=== PATIENT | female | born 2000 | race Two or more races ===

== ENCOUNTER 2025-02-01 11:37 | Emergency (ER) | payer MEDICAID, SELFPAY ==
[2025-02-01 11:39] VITALS: BMI 27.8
--- NOTE | 2025-02-01 11:57 | XR_ITS ---
Examination: Pelvic ultrasound, transabdominal, complete Technique: Transabdominal ultrasound of the pelvis performed using grayscale imaging Date and time of exam: January 24, 2025 1343 hours INDICATIONS: Onset pelvic pain beginning this morning FINDINGS: Uterus 7.9 cm endometrial stripe 0.6 cm No uterine mass or intrauterine gestation Right ovary 3.2 cm arterial flow Left ovary 3.1 cm arterial flow IMPRESSION: Negative study
[2025-02-01 11:58] VITALS: BP 134/78; PULSE 90; RESP 18; TEMP 36.9; O2SAT 98
[2025-02-01 12:31] LABS: Collection Type, Urine Clean Catch
[2025-02-01 12:54] LABS: Basophils % (Auto) 0 % (0-2.5); Eosinophils % (Auto) 1 % (0-10); Hematocrit 38.3 % (36.0-46.0); Hemoglobin 12.6 g/dL (12.0-16.0); Immature Granulocytes % (Auto) 0 % (0-0); Immature Granulocytes Auto 0.01 Thou/mm3 (0.00-0.00); Lymphocytes # (Auto) 1.4 Thou/mm3 (1.0-4.8); Lymphocytes % (Auto) 28 % (10-50); Mean Corpuscular HGB Conc 32.9 g/dl (31.0-37.0); Mean Corpuscular Hemoglobin 28.4 pg (25.0-35.0); Mean Corpuscular Volume 87 fL (80-100); Monocytes # (Auto) 0.4 Thou/mm3 (0.0-0.8); Monocytes % (Auto) 8 % (0-12); Neutrophils % (Auto) 62 % (37-80); Nucleated Red Blood Cell % 0 /100 WBC (0); Platelet Count 155 Thou/mm3 (140-440); RDW Standard Deviation 45.1 fL (36.4-46.3); Red Blood Count 4.43 Miln/mm3 (4.00-5.20); White Blood Count 4.8 Thou/mm3 (3.6-11.0)
[2025-02-01 13:07] LABS: Bilirubin,Urine Negative (Negative); Blood,Urine Negative (Negative); Clarity,Urine Clear (Clear/Hazy); Color,Urine Lt-Yellow (Lt Yel-Yel); Culture Indicated,Urine Not Indicated; Glucose, Urine Negative (Negative); Ketones,Urine Negative (Negative); Leukocyte Esterase,Urine Negative (Negative); Nitrite,Urine Negative (Negative); PH,Urine 6.5 (5.0-7.0); Protein,Urine Negative (Neg - Trace); RBC,Urine 2 /hpf (0-3); Specific Gravity,Urine 1.024 (1.001-1.035); Squamous Epithelial Cell,Urine 7 /hpf (0-5); Urobilinogen,Urine Negative mg/dL (0.0-1.0); WBC,Urine 1 /hpf (0-5)
[2025-02-01 13:14] LABS: HCG Qualitative,Urine Negative
[2025-02-01 13:18] LABS: Alanine Aminotransferase 19 U/L (10-49); Albumin, Serum 4.7 gm/dL (3.5-5.0); Albumin/Globulin Ratio 1.9 (1.2-2.2); Alkaline Phosphatase 98 U/L (46-116); Anion Gap 9 (7-16); Aspartate Amino Transferase 17 U/L (0-34); BUN/Creatinine Ratio 16 Ratio (12-20); Bilirubin,Total 0.4 mg/dL (0.3-1.2); Blood Urea Nitrogen 11 mg/dL (9-23); Calcium 9.3 mg/dL (8.3-10.6); Calcium (Corrected) 9.3 mg/dL (8.5-10.1); Carbon Dioxide 25.2 mMol/L (20.0-31.0); Chloride 109 mMol/L (98-107); Creatinine (Component) 0.7 mg/dL (0.6-1.3); Estimated Creatinine Clearance 119.6 mL/min (>60); Globulin 2.5 gm/dL (2.3-3.5); Glucose 114 mg/dL (74-106); Lipase 31 U/L (12-53); Osmolality,Calculated 285 (275-295); Potassium 3.7 mMol/L (3.4-5.1); Sodium 143 mMol/L (136-145); Total Protein 7.2 gm/dL (5.7-8.2); eGFR > 60 See Note
--- NOTE | 2025-02-01 14:11 | XR_ITS ---
Examination: CT abdomen and pelvis without contrast. Coronal 3-D reconstructions. Sagittal 2-D reconstructions. Date and time of exam:February 01, 2025 1513 hours INDICATIONS: Onset abdominal pain flank pain today COMPARISON: August 06, 2023 CTDI: vol (mGy): 8.97 DLP: (mGycm): 508 Technique: Axial images of the abdomen have been obtained, 3 mm slice thickness Intravenous contrast material has not been administered. Low dose protocols were performed. One or more of the following dose reduction techniques were used; automated exposure control, adjustment of the mA and/or KV according to patient size, use of iterative reconstruction technique. Findings: No focal liver or splenic lesions Absent gallbladder No pancreatic or adrenal mass No renal or ureteral calculi, no hydronephrosis Normal appendix No bowel obstruction 6 mm fat-containing a buckle hernia No diverticulitis Retroverted uterus No pelvic mass Urinary bladder intact The osseous structures are intact IMPRESSION: No renal or ureteral calculi, no hydronephrosis Normal appendix No bowel obstruction diverticulitis or free air
--- NOTE | 2025-02-01 15:50 | EDNOTE_ITS ---
<Statement entered by Love Gaviria MD - 02/07/25 02:10> As co-signing physician, I was present and available for consult prn. I concur with the plan and care as documented by the midlevel provider. ED Abdominal Pain RME/HPI General Chief Complaint: Abdominal Pain Stated complaint: ABDOMINAL PAIN SINCE YESTERDAY Time seen by provider: 02/01/25 11:58 Arrival date/time: 02/01/25 11:37 24-year-old female with no significant problems presents to the emergency department today for complaints of pelvic pain white vaginal discharge Limitations: no limitations Related Data Home Medications ?Medication ?Instructions ?Recorded ?Confirmed vits no.130-ferrous fum 1 tab PO QDAY 3 04/16/23 27 mg iron-folic acid 800 mcg tablet ( Vitamin) Previous Rx's ?Medication ?Instructions ?Recorded omeprazole 20 mg capsule,delayed 20 mg PO QDAY 30 days #30 caps 02/22/23 release meloxicam 7.5 mg tablet 7.5 mg PO QDAY #14 tabs 07/09 10/29 ibuprofen 800 mg tablet 800 mg PO TID PRN pain #30 t abs 08/10/23 ibuprofen 600 mg tablet 600 mg PO Q6H #30 tabs 02/01 Allergies Allergy/AdvReac Type Severity Reaction Status Date / Time No Known Allergies Allergy Verified 02/01/25 11:38 Review of Systems Review of Systems Systems Reviewed: All systems reviewed, normal except as documented Constitutional Constitutional: Reports system reviewed and no additional complaints, except as documented, Denies fever(s) and Denies headache(s) Eyes Eyes: Reports system reviewed and no additional complaints, except as documented and Denies blurry vision ENT Ears, Nose, Mouth, and Throat: Reports system reviewed and no additional complaints, except as documented, Denies headache(s), Denies nasal congestion and Denies nasal discharge Cardiovascular Cardiovascular: Reports system reviewed and no additional complaints, except as documented, Denies chest pain and Denies dyspnea Respiratory Respiratory: Reports system reviewed and no additional complaints, except as documented, Denies chest congestion, Denies cough and Denies dyspnea Gastrointestinal Gastrointestinal: Reports system reviewed and no additional complaints, except as documented and Denies abdominal pain Genitourinary Genitourinary: Reports system reviewed and no additional complaints, except as documented, Denies abnormal vaginal bleeding, Denies flank pain, Denies hematuria, Reports pelvic pain and Reports vaginal discharge Integumentary/Breasts Skin/Breast: Reports system reviewed and no additional complaints, except as documented and Denies rash Neurologic Neurologic: Reports system reviewed and no additional complaints, except as documented, Reports as per HPI and Denies headache(s) Past Medical History Past Medical History NEUROLOGIC: Negative Neurological Disorders or Seizures CARDIAC: Negative Cardiac Disorders or Congestive Heart Failure RESPIRATORY: Negative Chronic Obstructive Pulmonary Disease (COPD) or Asthma GASTROINTESTINAL: Negative Gastrointestinal Disorders or Hepatitis GENITOURINARY: Negative Renal Disease REPRODUCTIVE: Negative Pelvic Inflammatory Disease MUSCULOSKELETAL: Negative Musculoskeletal Disorders ENDOCRINE: Negative Endocrine Disorders, Diabetes Mellitus Type 1 or Diabetes Mellitus Type 2 HEMATOLOGIC: Negative Blood Disorders or Sickle Cell Disease OTHER HISTORY: Positive Hospitalization; Negative Autoimmune Disease, Down Syndrome, Developmental Delay, Shingles, Falls, Blood Transfusions, Blood Transfusion Reaction, Anesthesia Reactions, Organ Transplant, Chemotherapy, Radiation Therapy, Hyperbaric Therapy, MRSA, VRSA, Vancomycin-Resistant Enterococci, Human Immunodeficiency Virus (HIV), Chicken Pox, Measles, Mumps, Rubella (Telugu Measles), Pertussis, Clostridium Difficile or Cancer Family History FAMILY HISTORY: Negative Family Psychiatric Problems, Family Respiratory Disorders, Family Cardiac Disorders, Family Gastrointestinal Problems, Family Cancer, Family Surgery or Family Anesthesia Reaction Surgical History SURGICAL: Positive Abdominal Surgery; Negative Cardiac Surgery, Open Heart Surgery, Coronary Artery Bypass Graft, Valve Replacement, Vascular Surgery, Coronary Stent, Cardiac Catheterization, Pacemaker, Angiogram, Auto Implanted Cardiovert Defib, Carotid Endarterectomy, Endocrine Surgery, Ear Surgery, Nephrectomy, Joint Replacement, Neurologic Surgery, Mastectomy, Vasectomy or Organ Transplant Social History SMOKING STATUS: Never smoker ED Exam General Limitations: Present no limitations General appearance: Present alert and in no apparent distress Head Head exam: Present atraumatic, normocephalic and normal inspection Eye Eye exam: Present normal appearance, PERRL and EOMI; Absent conjunctival i njection ENT ENT exam: Present normal exam, normal oropharynx and mucous membranes moist Neck Neck exam: Present normal inspection, full ROM and trachea midline Chest Chest inspection: Present normal inspection and symmetric chest wall rise Respiratory Respiratory exam: Present normal lung sounds bilaterally Cardiovascular Cardiovascular exam: Present regular rate, normal rhythm and normal heart sounds Abdominal Exam Abdominal exam: Present soft and normal bowel sounds; Absent distention, tenderness, guarding, rebound or rigidity Extremities Exam Extremities exam: Present normal inspection and full ROM Back Exam Back exam: Present normal inspection, full ROM, tenderness, muscle spasm and paraspinal tenderness; Absent CVA tenderness (R) or CVA tenderness (L) Neurological Exam Neurological exam: Present alert, oriented X3, CN II-XII intact, normal gait and reflexes normal; Absent motor sensory deficit Psychiatric Psychiatric exam: Present normal affect and normal mood Skin Skin exam: Present warm, dry, intact and normal color Course Quality Measures none Orders Category Date Time Status CT abdomen pelvis wo con Stat Exams 02/01/25 14:11 Completed US pelvic complete Stat Exams 02/01/25 11:57 Completed CBC Stat Lab 02/01/25 12:29 Completed Comprehensive Metabolic Panel Stat Lab 02/01/25 12:29 Completed HCG Qualitative,Urine Stat Lab 02/01/25 12:20 Completed Lipase Stat Lab 02/01/25 12:29 Completed UA, C/S IF [Urinalysis, C/S if Indicated] Stat Lab 02/01/25 12:20 Completed Fluconazole [Diflucan] Med 02/01/25 15:54 Discontinued 150 mg PO X1 ONE Lidocaine 1% 20 ml [Xylocaine 1% 20 ML] Med 02/01/25 15:54 Discontinued 2.1 ml INFL X1 ONE cefTRIAXone [Rocephin] Med 02/01/25 15:54 Discontinued 1,000 mg IM X1 ONE Vital Signs Vital signs: Vital Signs Temperature 98.4 F 02/01/25 11:58 Pulse Rate 90 02/01/25 11:58 Respiratory Rate 18 02/01/25 11:58 Blood Pressure 134/78 H 02/01/25 11:58 Pulse Oximetry (%) 98 02/01/25 11:58 Oxygen Delivery Method Room Air 02/01/25 11:58 O2 saturation 98% room air within normal limits Abdominal Pain MDM MDM Narrative MDM Narrative:: 24-year-old female with no significant problems presents to the emergency department today for complaints of pelvic pain white vaginal discharge On exam patient well-appearing patient does not appear ill or toxic in no acute distress Blood work as well as imaging obtained no acute emergent findings noted As patient has vaginal discharge she may have a yeast infection patient be treated with fluconazole Patient also reports that she has pelvic pain which may be concerning for PID patient given injection of Rocephin here Patient discharged home in no distress to follow-up with primary care doctor in the next 24 to 48 hours and for any worsening symptoms to return to the ER immediately Patient data External records reviewed:: [facility] previous records Clinical information provided by:: patient Social determinants that could affect healthcare access:: none Patient has the following chronic illnesses:: None How is presenting disease/condition affected by chronic disease/condition?: no c hronic disease Evaluation data The following diagnostics were reviewed and interpreted by me:: lab results and radiology exam(s) Lab and/or radiology exams considered but not ordered:: Lab radiology obtain Interpretation Summary: Reviewed by me Medications / Prescriptions Medications or Prescriptions considered but not ordered:: Jesica Medication administrations:: Medication Administration History Discontinued Medications Ceftriaxone Sodium (Ceftriaxone Sod Inj 1,000 Mg Vial) 1,000 mg IM X1 ONE Stop: 02/01/25 15:55 Last Admin: 02/01/25 16:02 Dose: 1,000 mg Documented By: OA Fluconazole (Fluconazole 150 Mg Tablet) 150 mg PO X1 ONE Stop: 02/01/25 15:55 Last Admin: 02/01/25 16:02 Dose: 150 mg Documented By: OA Lidocaine HCl (Lidocaine Hcl 1% 20 Ml Vial) 2.1 ml INFL X1 ONE Stop: 02/01/25 15:55 Last Admin: 02/01/25 16:03 Dose: 2.1 ml Documented By: OA Given Consultations Consultation(s) initiated? (list below): No Diagnosis Differential diagnosis abdominal pain: abdominal pain, pancreatitis and small bowel obstruction Most likely diagnosis given after review of the tests above:: Pelvic pain, candidiasis Admission Indicated Admission indicated?: not indicated Admission Request Was there a request for admission?: No Disposition Plan Disposition Plan: Discharge Discharge Attestation Discharge Attestation: The patient and all family members were given an opportunity to ask questions and understood the discharge instructions. Discharge instructions specifically effects, indications for sooner follow up or return to the emergency department, and the expected course of current diagnosis. Patient condition: Stable Discharge Plan Plan Patient Disposition: HOME (Self Care) Disposition Comment: Stable Prescriptions/Referrals Prescriptions/Med Rec: New ibuprofen 600 mg tablet 600 mg PO Q6H Qty: 30 0RF No Action Vitamin 27 mg iron- 800 mcg Tablet 1 tab PO QDAY omeprazole 20 mg capsule,delayed release(DR/EC) 20 mg PO QDAY 30 Days Qty: 30 2RF meloxicam 7.5 mg tablet 7.5 mg PO QDAY Qty: 14 0RF ibuprofen 800 mg tablet 800 mg PO TID PRN (Reason: pain) Qty: 30 0RF Referrals: Wily Ty MD [Primary Care Provider] - 02/02/25 Problem List Clinical Impression: Pelvic pain, Vaginal discharge Patient/Caregiver Discharge Instructions Education Materials: Vaginal Infection Additional Instructions: Please follow up with your primary care doctor in the next 24-48hrs for any worsening symptoms return here immediately Print Language: Bulgarian Stand Alone Forms: Cristina Award Info., Patient Portal Info Letter PA/ENGINEERING MECHANIC Supervising Physician PA/ENGINEERING MECHANIC Supervising Physician: Dr. gaviria
[2025-02-01] MEDS: cefTRIAXone SOD INJ 1,000 MG VIAL 1000 MG IM (16:02)
[2025-02-01] MEDS: FLUCONAZOLE 150 MG TABLET PO (16:02)
[2025-02-01] MEDS: LIDOCAINE HCL 1% 20 ML VIAL 2.1 ML INFL (16:03)
[2025-02-01 16:34] VITALS: BP 118/74; PULSE 70; RESP 16; O2SAT 99
== END 2025-02-01 16:35 | disposition home or self-care (01) ==
PROVIDERS: Nurse Practitioner Primary Care; Emergency Provider Emergency Medicine; PCP Family Medicine
DX: N89.8 Other specified noninflammatory disorders of vagina (principal); R10.2 Pelvic and perineal pain
CPT/HCPCS: 36415; 74176; 76856; 80053; 81001; 81025; 83690; 85025; 96372; 99284; J0696; J3490; A9270

== ENCOUNTER 2025-03-16 11:59 | Emergency (ER) | payer MEDICAID, SELFPAY ==
[2025-03-16 12:01] VITALS: BMI 31.0
[2025-03-16 12:19] VITALS: BP 126/73; PULSE 70; RESP 16; TEMP 36.8; O2SAT 99
--- NOTE | 2025-03-16 12:23 | PD.EDURI ---
Upper Respiratory Inf. RME/HPI General Chief Complaint: Flu Like Symptoms Stated Complaint: FEVER AT NIGHT X 2D, COUGH x 4D,EAR POPPED Time Seen by Provider: 03/16/25 12:09 Source: patient Arrival date/time: 03/16/25 11:59 24-year-old female with no known medical history presents to the emergency room with a chief complaint of intermittent fevers, cough, right ear pain x 4 days Mode of arrival: ambulatory Limitations: no limitations Related Data Home Medications ?Medication ?Instructions ?Recorded ?Confirmed vits no.130-ferrous fum 1 tab PO QDAY 02/22/23 04/16/23 27 mg iron-folic acid 800 mcg tablet ( Vitamin) Previous Rx's ?Medication ?Instructions ?Recorded omeprazole 20 mg capsule,delayed 20 mg PO QDAY 30 days #30 caps 02/22/23 release meloxicam 7.5 mg tablet 7.5 mg PO QDAY #14 tabs 08/06/23 ibuprofen 800 mg tablet 800 mg PO TID PRN pain #30 tabs 08/10/23 ibuprofen 600 mg tablet 600 mg PO Q6H #30 tabs 02/01/25 Allergies Allergy/AdvReac Type Severity Reaction Status Date / Time No Known Allergies Allergy Verified 03/16/25 12:05 Review of Systems Review of Systems Systems Reviewed: All systems reviewed, normal except as documented Constitutional Constitutional: Reports system reviewed and no additional complaints, except as documented, Denies fatigue, Reports fever(s), Denies headache(s) and Denies weakness Eyes Eyes: Reports system reviewed and no additional complaints, except as documented, Denies blurry vision and Denies change in vision ENT Ears, Nose, Mouth, and Throat: Reports system reviewed and no additional complaints, except as documented, Reports otalgia, Denies headache(s), Reports nasal congestion, Denies throat swelling and Denies vertigo Cardiovascular Cardiovascular: Reports system reviewed and no additional complaints, except as documented, Denies chest pain, Denies dyspnea and Denies dyspnea on exertion Respiratory Respiratory: Reports system reviewed and no additional complaints, except as documented, Denies chest congestion, Denies cough, Denies dyspnea, Denies dyspnea on exertion and Denies wheezing Gastrointestinal Gastrointestinal: Reports system reviewed and no additional complaints, except as documented, Denies abdominal pain, Denies cramping, Denies nausea and Denies vomiting Genitourinary Genitourinary: Reports system reviewed and no additional complaints, except as documented Musculoskeletal Musculoskeletal: Reports system reviewed and no additional complaints, except as documented and Denies back pain Integumentary/Breasts Skin/Breast: Reports system reviewed and no additional complaints, except as documented and Denies wounds Neurologic Neurologic: Reports system reviewed and no additional complaints, except as documented, Denies confusion, Denies headache(s), Denies lack of coordination, Denies vertigo and Denies weakness Psychiatric Psychiatric: Reports system reviewed and no additional complaints, except as documented, Denies anxiety, Denies confusion, Denies depression, Denies paranoia, Denies suicidal ideation and Denies tactile hallucinations Endocrine Endocrine: Reports system reviewed and no additional complaints, except as documented and Denies fatigue Hematologic/Lymphatic Hematologic/Lymphatic: Reports system reviewed and no additional complaints, except as documented and Denies lymphadenopathy Allergic/Immunologic Allergic/Immunologic: Reports system reviewed and no additional complaints, except as documented, Denies throat swelling, Denies urticaria and Denies wheezing Past Medical History Past Medical History NEUROLOGIC: Negative Neurological Disorders or Seizures CARDIAC: Negative Cardiac Disorders or Congestive Heart Failure RESPIRATORY: Negative Chronic Obstructive Pulmonary Disease (COPD) or Asthma GASTROINTESTINAL: Negative Gastrointestinal Disorders or Hepatitis GENITOURINARY: Negative Renal Disease REPRODUCTIVE: Negative Pelvic Inflammatory Disease MUSCULOSKELETAL: Negative Musculoskeletal Disorders ENDOCRINE: Negative Endocrine Disorders, Diabetes Mellitus Type 1 or Diabetes Mellitus Type 2 HEMATOLOGIC: Negative Blood Disorders or Sickle Cell Disease OTHER HISTORY: Positive Hospitalization; Negative Autoimmune Disease, Down Syndrome, Developmental Delay, Shingles, Falls, Blood Transfusions, Blood Transfusion Reaction, Anesthesia Reactions, Organ Transplant, Chemotherapy, Radiation Therapy, Hyperbaric Therapy, MRSA, VRSA, Vancomycin-Resistant Enterococci, Human Immunodeficiency Virus (HIV), Chicken Pox, Measles, Mumps, Rubella (Vietnamese Measles), Pertussis, Clostridium Difficile or Cancer Family History FAMILY HISTORY: Negative Family Psychiatric Problems, Family Respiratory Disorders, Family Cardiac Disorders, Family Gastrointestinal Problems, Family Cancer, Family Surgery or Family Anesthesia Reaction Surgical History SURGICAL: Positive Abdominal Surgery; Negative Cardiac Surgery, Open Heart Surgery, Coronary Artery Bypass Graft, Valve Replacement, Vascular Surgery, Coronary Stent, Cardiac Catheterization, Pacemaker, Angiogram, Auto Implanted Cardiovert Defib, Carotid Endarterectomy, Endocrine Surgery, Ear Surgery, Nephrectomy, Joint Replacement, Neurologic Surgery, Mastectomy, Vasectomy or Organ Transplant Social History SMOKING STATUS: Never smoker ED Exam General Limitations: Present no limitations General appearance: Present alert and in no apparent distress Head Head exam: Present atraumatic Eye Eye exam: Present normal appearance, PERRL and EOMI ENT ENT exam: Present normal exam, normal oropharynx and mucous membranes moist Expanded ENT Exam External ear exam: Absent external tenderness TM/Canal exam: Right TM: erythema Neck Neck exam: Present normal inspection, full ROM and trachea midline Chest Chest inspection: Present normal inspection and symmetric chest wall rise Respiratory Respiratory exam: Present normal lung sounds bilaterally; Absent respiratory distress, wheezes, stridor, accessory muscle use or prolonged expiratory phase Cardiovascular Cardiovascular exam: Present regular rate, normal rhythm and normal heart sounds Abdominal Exam Abdominal exam: Present soft and normal bowel sounds Extremities Exam Extremities exam: Present normal inspection and full ROM Back Exam Back exam: Present normal inspection and full ROM Neurological Exam Neurological exam: Present alert, oriented X3 and CN II-XII intact Psychiatric Psychiatric exam: Present normal affect and normal mood Skin Skin exam: Present warm, dry, intact and normal color Course Quality Measures none Orders Category Date Time Status Bedside COVID-19 Antigen Test NOW Care 03/16/25 12:23 Completed Bedside Influenza A&B Antigen Test NOW Care 03/16/25 12:23 Completed Vital Signs Vital signs: Vital Signs Temperature 98.2 F 03/16/25 12:19 Pulse Rate 70 03/16/25 12:19 Respiratory Rate 16 03/16/25 12:19 Blood Pressure 126/73 03/16/25 12:19 Pulse Oximetry (%) 99 03/16/25 12:19 Oxygen Delivery Method Room Air 03/16/25 12:19 O2 saturation 99% within normal limits Upper Respiratory Infection MDM Narrative MDM Narrative:: 24-year-old female with no known medical history presents to the emergency room with a chief complaint of intermittent fevers, cough, right ear pain x 4 days Patient is hemodynamically stable and in no apparent distress Physical examination shows clear bilateral lung sounds with no wheezing stridor or any abnormal breath sounds. The right tympanic membrane is erythemic but nonbulging. ENT examination showed an erythemic posterior pharynx but there are no bilateral exudates. Patient tested positive for influenza A and B Patient eloped prior to final disposition Patient data External records reviewed:: [facility] previous records Clinical information provided by:: patient Social determinants that could affect healthcare access:: none Patient has the following chronic illnesses:: No chronic illness How is presenting disease/condition affected by chronic disease/condition?: no chronic disease Evaluation data The following diagnostics were reviewed and interpreted by me:: lab results and radiology exam(s) Lab and/or radiology exams considered but not ordered:: Labs and radiology exams considered and ordered Interpretation Summary: Chest x-ray- Medications / Prescriptions Medications or Prescriptions considered but not ordered:: No medication given Medication administrations:: No medication given Consultations Consultation(s) initiated? (list below): No Diagnosis Upper Respiratory Differential Diagnosis: upper respiratory infection, otitis media, sinusitis, viral infection, bronchitis, influenza, pharyngitis and other (Community-acquired pneumonia) Most likely diagnosis given after review of the tests above:: influenza Admission Indicated Admission indicated?: not indicated Admission Request Was there a request for admission?: No Disposition Plan Disposition Plan: Discharge Discharge Attestation Discharge Attestation: The patient and all family members were given an opportunity to ask questions and understood the discharge instructions. Discharge instructions specifically effects, indications for sooner follow up or return to the emergency department, and the expected course of current diagnosis. Patient condition: Stable Discharge Plan Plan Patient Disposition: HOME (Self Care) Discharge Disposition comment: Stable Prescriptions/Referrals Prescriptions/Med Rec: No Action Vitamin 27 mg iron- 800 mcg Tablet 1 tab PO QDAY omeprazole 20 mg capsule,delayed release(DR/EC) 20 mg PO QDAY 30 Days Qty: 30 2RF meloxicam 7.5 mg tablet 7.5 mg PO QDAY Qty: 14 0RF ibuprofen 800 mg tablet 800 mg PO TID PRN (Reason: pain) Qty: 30 0RF ibuprofen 600 mg tablet 600 mg PO Q6H Qty: 30 0RF Referrals: Wily Ty MD [Primary Care Provider] - In 1 week Problem List Clinical Impression: Influenza Patient/Caregiver Discharge Instructions Education Materials: ED Influenza (Adult) Additional Instructions: Por favor, consulte con colon m?dico de cabecera en las pr?ximas 24 a 48 horas. Ranjith positivo en la prueba de influenza. El tratamiento es el control de los s?ntomas. Contin?e tomando Tylenol e ibuprofeno para controlar la fiebre. Aumente colon consumo de l?quidos por v?a oral. Ante cualquier signo de empeoramiento de los signos o s?ntomas, acuda de inmediato a urgencias. Print Language: Slovak Stand Alone Forms: Cristina Award Info., Patient Portal Info Letter PA/UNATTENDED GROUND SENSOR SPECIALIST Supervising Physician PA/UNATTENDED GROUND SENSOR SPECIALIST Supervising Physician: Dr. Womack
--- NOTE | 2025-03-16 13:08 | PC.NURSE ---
CALLED FOR PT FROM LOBBY/OUTSIDE FOR XRAY, NO [email or web address]
--- NOTE | 2025-03-16 13:25 | PC.NURSE ---
called from lobby and no answer. pt not found inside the e.d. or outside the e.d.
--- NOTE | 2025-03-16 13:25 | PC.NURSE ---
no answer in lobby when called for room in ed
== END 2025-03-16 14:35 | disposition home or self-care (01) ==
PROVIDERS: Emergency Provider Family Medicine; PCP Family Medicine
DX: J10.1 Influenza due to other identified influenza virus with other respiratory manifestations (principal)
CPT/HCPCS: 87400; 87811; 99283

== ENCOUNTER 2025-09-01 23:18 | Emergency (ER) | payer MEDICAID, SELFPAY ==
[2025-09-01 23:19] VITALS: BP 155/65; PULSE 117; RESP 16; TEMP 36.9; O2SAT 100
--- NOTE | 2025-09-01 23:32 | XR_ITS ---
EXAMINATION: AP chest single view TECHNIQUE: AP portable upright chest single view Date and time: September 01, 2025, 11:30 p.m. INDICATIONS: Shortness of breath today FINDINGS: Normal heart size Lungs are clear. Osseous structures are intact IMPRESSION: No active disease
[2025-09-01 23:35] VITALS: BP 121/75; PULSE 120; RESP 20; O2SAT 99
--- NOTE | 2025-09-01 23:36 | PD.EDCHEST ---
ED Chest Pain RME/HPI General Chief Complaint: General Adult/Misc Complain Stated Complaint: SOB , HYPERVENTALATING Time Seen by Provider: 09/01/25 23:31 Arrival date/time: 09/01/25 23:18 RME / HPI RME / HPI narrative: See [facility] for Dr. Preston's HPI Documentation. Related Data Home Medications ?Medication ?Instructions ?Recorded ?Confirmed vits no.[id number]-[id number] fum 1 tab PO QDAY 02/22/23 04/16/23 27 mg iron-folic acid 800 mcg tablet ( Vitamin) Previous Rx's ?Medication ?Instructions ?Recorded omeprazole 20 mg capsule,delayed 20 mg PO QDAY 30 days #30 caps 02/22/23 release meloxicam 7.5 mg tablet 7.5 mg PO QDAY #14 tabs 08/06/23 ibuprofen 800 mg tablet 800 mg PO TID PRN pain #30 tabs 08/10/23 ibuprofen 600 mg tablet 600 mg PO Q6H #30 tabs 02/01/25 alprazolam 0.5 mg tablet (Xanax) 0.5 mg PO BID PRN anxiety #10 tabs 09/02/25 Allergies Allergy/AdvReac Type Severity Reaction Status Date / Time No Known Allergies Allergy Verified 09/01/25 23:36 Review of Systems Review of Systems Systems Reviewed: All systems reviewed, normal except as documented Past Medical History Past Medical History OTHER HISTORY: Positive Hospitalization Surgical History SURGICAL: Positive Abdominal Surgery ED Exam Narrative Physical exam: See [facility] for Dr. Preston's Physical Exam Documentation. Course Quality Measures none Orders Category Date Time Status EKG (ED ONLY) *Do not use* NOW Care 09/01/25 23:40 Completed Saline [Insert IV] NOW Care 09/01/25 23:31 Completed EKG (ED Only) Stat Exams 09/01/25 23:40 Draft XR chest 1V portable Stat Exams 09/01/25 23:32 Completed Alcohol, Blood Medical Stat Lab 09/01/25 23:34 Completed BNP [B-Type Natriuretic Peptide] Stat Lab 09/01/25 23:34 Completed Bilirubin,Direct Stat Lab 09/01/25 23:34 Completed CBC Stat Lab 09/01/25 23:34 Completed CMP [Comprehensive Metabolic Panel] Stat Lab 09/01/25 23:34 Completed D-Dimer Stat Lab 09/01/25 23:34 Completed HCG,Qualitative Serum Stat Lab 09/01/25 23:34 Completed Hemoglobin A1C [Glycohemoglobin w (eAG)] Stat Lab 09/01/25 23:34 Completed Magnesium Stat Lab 09/01/25 23:34 Completed TSH [Thyroid Stimulating Hormone] Stat Lab 09/01/25 23:34 Completed Troponin I Stat Lab 09/01/25 23:34 Completed VBG [Venous Blood Gas] Stat Lab 09/01/25 23:34 Completed LORazepam [Ativan Inj] Med 09/01/25 23:31 Discontinued 1.4 mg IVP X1 ONE Ondansetron Inj [Zofran Inj] Med 09/01/25 23:31 Discontinued 4 mg IVP X1 ONE POTASSIUM CHL 10% Liq 15 ML Med 09/02/25 00:31 Discontinued 40 meq PO X1 ONE Sodium Chloride 0.9% 1000 ml [Ns] 1,000 ml Med 09/01/25 23:31 Discontinued IV 999 mls/hr Vital Signs Vital signs: Vital Signs Temperature 98.5 F 09/01/25 23:19 Pulse Rate 117 H 09/01/25 23:19 Respiratory Rate 16 09/01/25 23:19 Blood Pressure 155/65 H 09/01/25 23:19 Pulse Oximetry (%) 100 09/01/25 23:19 Oxygen Delivery Method Room Air 09/01/25 23:19 Chest Pain MDM Narrative MDM Narrative:: This section includes all my notes and documentations, including HPI, PE, and ED course. Kameron Preston MD HPI: 24 y/o female here with sudden (started about 30 minutes ago) chest pain, intense fear, pounding and racing heart, sweating, chills, shaking, trouble breathing, stomach pain, nausea, numbness and tingling in the hands and feet and face, confusion, hot flashes, and feeling faint. No other complaints. ROS: All negative except as documented in HPI. Physical Exam: General: Alert and oriented. Appears severely anxious. Eyes: Conjunctivae and lids clear. ENT: No nasal congestion. Neck: Supple. Heart: RRR. Lungs: No respiratory distress. Good air movement. No rhonchi, wheezing, rales. Abdomen: Soft and nontender. Skin: Warm and dry. Neuro: Alert and oriented X 3. I reviewed all diagnostic test results: My interpretation of the EKG is: Sinus tachycardia (108 bpm) with nonspecific ST-T changes. My interpretation of the chest x-ray is: NAD. Blood tests unremarkable except K 3.3. At this point, diagnoses include: Panic Attack Treatment here included: IVF Zofran 4 mg IV Ativan 1.4 mg IV Oral KCl 40 mEq Significant improvement noted. Recommended more outpatient cardiac workup. Based on my best medical judgment, made decision no further evaluation or treatment indicated at this time. Patient understands and agrees to the discharge instructions customized and printed, see below. Discharge instructions from Dr. Preston: 1. After extensive evaluation, there is no life-threatening condition. Such as heart attack or pulmonary embolism (blood clots in your lungs) or pneumothorax (collapsed lung). 2. Your symptoms may be due to underlying stress or anxiety or nerves. This is fairly common. 3. Take Xanax as needed. Whether this helps or not will be valuable information to your private doctors. 4. See a private doctor on 09/03/2025. To make sure there is no serious underlying heart condition, ask to help you get more tests for your heart that cannot be done here in the ER. Such as Holter Monitor (cardiac monitoring at home from a day to even a month), heart stress test (on treadmill or with medication), echocardiogram (imaging of your heart structures), heart catherization (checking for blockages in your heart arteries), and a referral to see a Sole Stainer. 5. Seek immediate medical care with worsening or with any concerns. Kameron Preston MD Patient data External records reviewed:: [facility] previous records (Reviewed prior ED records from 03/16/25. Patient was seen for Influenza.) Clinical information provided by:: patient Social determinants that could affect healthcare access:: none Patient has the following chronic illnesses:: None reported How is presenting disease/condition affected by chronic disease/condition?: no chronic disease Evaluation data The following diagnostics were reviewed and interpreted by me:: lab results, radiology exam(s) and EKG tracing(s) (My interpretation of the EKG is: Sinus tachycardia (108 bpm) with nonspecific ST-T changes. Kameron Preston MD) Lab and/or radiology exams considered but not ordered:: None Interpretation Summary: I reviewed all diagnostic test results: My interpretation of the EKG is: Sinus tachycardia (108 bpm) with nonspecific ST-T changes. My interpretation of the chest x-ray is: NAD. Blood tests unremarkable except K 3.3. Medications / Prescriptions Medications or Prescriptions considered but not ordered:: None Medication administrations:: Medication Administration History Discontinued Medications Sodium Chloride (Ns) 1,000 mls @ 999 mls/hr IV .Q1H1M ONE Stop: 09/02/25 00:31 Last Infusion: 09/02/25 00:47 Dose: Infused Documented By: Admin: 09/01/25 23:40 Dose: 999 mls/hr Documented By: AC Lorazepam (Lorazepam 2 Mg/Ml Vial) 1.4 mg IVP X1 ONE Stop: 09/01/25 23:32 Last Admin: 09/01/25 23:40 Dose: 1.4 mg Documented By: AC Ondansetron HCl (Ondansetron Inj 2 Mg/Ml Inj 2 Ml) 4 mg IVP X1 ONE; Protocol Stop: 09/01/25 23:32 Last Admin: 09/01/25 23:39 Dose: 4 mg Documented By: AC Potassium Chloride (Potassium Chloride 10% 20 Meq/15 Ml Udc) 40 meq PO X1 ONE Stop: 09/02/25 00:32 Last Admin: 09/02/25 00:54 Dose: 40 meq Documented By: CCT Treatment here included: IVF Zofran 4 mg IV Ativan 1.4 mg IV Oral KCl 40 mEq Consultations Consultation(s) initiated? (list below): No Diagnosis Chest Pain Differential Diagnosis: stable angina, unstable angina pectoris, atypical chest pain, st elevation myocardial infarction, costochondritis and other (Panic attack) Most likely diagnosis given after review of the tests above:: Panic Attack Admission Indicated Admission indicated?: not indicated Explain why admission is indicated or not indicated:: With significant improvement and no condition needing emergent intervention, there was no indication for admission. Admission Request Was there a request for admission?: No Disposition Plan Disposition Plan: Discharge Discharge Attestation Discharge Attestation: The patient and all family members were given an opportunity to ask questions and understood the discharge instructions. Discharge instructions specifically effects, indications for sooner follow up or return to the emergency department, and the expected course of current diagnosis. Patient condition: Stable Discharge Plan Plan Patient Disposition: HOME (Self Care) Prescriptions/Referrals Prescriptions/Med Rec: New alprazolam [Xanax] 0.5 mg tablet 0.5 mg PO BID PRN (Reason: anxiety) Qty: 10 0RF No Action Vitamin 27 mg iron- 800 mcg Tablet 1 tab PO QDAY omeprazole 20 mg capsule,delayed release(DR/EC) 20 mg PO QDAY 30 Days Qty: 30 2RF meloxicam 7.5 mg tablet 7.5 mg PO QDAY Qty: 14 0RF ibuprofen 800 mg tablet 800 mg PO TID PRN (Reason: pain) Qty: 30 0RF ibuprofen 600 mg tablet 600 mg PO Q6H Qty: 30 0RF Problem List Clinical Impression: Panic attack Patient/Caregiver Discharge Instructions Discharge Activity: activity as tolerated Education Materials: ED Panic Attack Additional Instructions: Discharge instructions from Dr. Preston: 1. After extensive evaluation, there is no life-threatening condition. Such as heart attack or pulmonary embolism (blood clots in your lungs) or pneumothorax (collapsed lung). 2. Your symptoms may be due to underlying stress or anxiety or nerves. This is fairly common. 3. Take Xanax as needed. Whether this helps or not will be valuable information to your private doctors. 4. See a private doctor on 09/03/2025. To make sure there is no serious underlying heart condition, ask to help you get more tests for your heart that cannot be done here in the ER. Such as Holter Monitor (cardiac monitoring at home from a day to even a month), heart stress test (on treadmill or with medication), echocardiogram (imaging of your heart structures), heart catherization (checking for blockages in your heart arteries), and a referral to see a Sole Stainer. 5. Seek immediate medical care with worsening or with any concerns. Instrucciones de fran del Dr. Preston: 1. Tras meredith evaluaci?n exhaustiva, no se detect? ninguna afecci?n que ponga en peligro colon ren, tiff un ataque card?aco, meredith embolia pulmonar (co?gulos de collin en los pulmones) o un neumot?rax (colapso pulmonar). 2. Bernardo s?ntomas pueden deberse a estr?s, ansiedad o nerviosismo. Carlos es bastante com?n. 3. [place] Xanax seg?n sea necesario. La informaci?n sobre si le ayuda o no ser? valiosa para bernardo m?dicos de cabecera. 4. Consulte con un m?dico de cabecera el 03/09/2025. Para asegurarse de que no haya ninguna afecci?n card?yoel subyacente grave, solicite que le realicen pruebas card?acas adicionales que no se pueden realizar aqu? en la herve de emergencias. Estas pruebas incluyen: monitor Holter (monitorizaci?n card?yoel ambulatoria shirley un d?a o incluso un mes), prueba de esfuerzo card?aco (en cinta rodante o con medicaci?n), ecocardiograma (imagen de las estructuras del coraz?n), cateterismo card?aco (para detectar obstrucciones en las arterias coronarias) y meredith derivaci?n a un cardi?logo. 5. Busque atenci?n m?dica inmediata si bernardo s?ntomas empeoran o si tiene alguna inquietud. Print Language: [place]an Stand Alone Forms: Cristina Award Info., Patient Portal Info Letter
[2025-09-01 23:38] VITALS: BMI 29.6
[2025-09-01] MEDS: ONDANSETRON INJ 2 MG/ML INJ 2 ML 4 MG IVP (23:39)
[2025-09-01] MEDS: LORazepam 2 MG/ML VIAL 1.4 MG IVP (23:40)
[2025-09-01] MEDS: SODIUM CHLORIDE 0.9% 1000 ML 1,000 ML 999 ML IV (23:40)
--- NOTE | 2025-09-01 23:40 | EKG_ITS ---
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
[2025-09-01 23:47] LABS: Base Excess, Venous -2 (-3-3); O2 Saturation, Venous 95 % (96-97); PCO2, Venous 37 mmHg (36-56); PO2, Venous 71 mmHg (15-58); pH, Venous 7.40 (7.33-7.66)
[2025-09-01 23:50] LABS: Basophils # (Auto) 0.0 Thou/mm3 (0.0-0.2); Basophils % (Auto) 0 % (0-2.5); Eosinophils # (Auto) 0.1 Thou/mm3 (0.0-0.5); Eosinophils % (Auto) 1 % (0-10); Hematocrit 38.7 % (36.0-46.0); Hemoglobin 13.0 g/dL (12.0-16.0); Immature Granulocytes Auto 0.02 Thou/mm3 (0.00-0.00); Lymphocytes # (Auto) 2.8 Thou/mm3 (1.0-4.8); Lymphocytes % (Auto) 33 % (10-50); Mean Corpuscular HGB Conc 33.6 g/dl (31.0-37.0); Mean Corpuscular Hemoglobin 28.6 pg (25.0-35.0); Mean Corpuscular Volume 85 fL (80-100); Monocytes # (Auto) 0.6 Thou/mm3 (0.0-0.8); Monocytes % (Auto) 7 % (0-12); Neutrophils # (Auto) 5.1 Thou/mm3 (1.8-7.7); Neutrophils % (Auto) 59 % (37-80); Nucleated Red Blood Cell # 0.00 Thou/mm3 (0.00-0.00); Nucleated Red Blood Cell % 0 /100 WBC (0); Platelet Count 166 Thou/mm3 (140-440); RDW Standard Deviation 44.7 fL (36.4-46.3); Red Blood Count 4.55 Miln/mm3 (4.00-5.20); White Blood Count 8.6 Thou/mm3 (3.6-11.0)
[2025-09-02 00:03] LABS: D-Dimer < 250 ng/mL (<600)
[2025-09-02 00:05] LABS: HCG,Qualitative Serum Negative
[2025-09-02 00:07] LABS: Glucose Estimated Average 103 mg/dL (80-131); Hemoglobin A1C 5.2 % Hgb (4.8-6.0)
[2025-09-02 00:11] LABS: Alanine Aminotransferase 39 U/L (10-49); Albumin, Serum 4.9 gm/dL (3.5-5.0); Albumin/Globulin Ratio 1.8 (1.2-2.2); Alcohol, Blood Medical < 3.0 mg/dL (0-10.0); Alkaline Phosphatase 119 U/L (46-116); Anion Gap 10 (7-16); Aspartate Amino Transferase 25 U/L (0-34); BUN/Creatinine Ratio 11 Ratio (12-20); Bilirubin,Direct < 0.1 mg/dL (0.0-0.3); Bilirubin,Total 0.2 mg/dL (0.3-1.2); Blood Urea Nitrogen 9 mg/dL (9-23); Calcium 9.0 mg/dL (8.3-10.6); Calcium (Corrected) 9.0 mg/dL (8.5-10.1); Carbon Dioxide 23.8 mMol/L (20.0-31.0); Chloride 108 mMol/L (98-107); Creatinine (Component) 0.8 mg/dL (0.6-1.3); Estimated Creatinine Clearance 100.0 mL/min (>60); Globulin 2.7 gm/dL (2.3-3.5); Glucose 127 mg/dL (74-106); Magnesium 1.8 mg/dL (1.6-2.6); Osmolality,Calculated 283 (275-295); Potassium 3.3 mMol/L (3.4-5.1); Sodium 142 mMol/L (136-145); Thyroid Stimulating Hormone 2.89 uIU/mL (0.55-4.78); Total Protein 7.6 gm/dL (5.7-8.2); Troponin I < 0.020 ng/mL (0.0-0.045); eGFR > 60 See Note
[2025-09-02 00:29] LABS: B-Type Natriuretic Peptide < 20 pg/mL (0-100)
[2025-09-02] MEDS: POTASSIUM CHLORIDE 10% 20 MEQ/15 ML UDC 40 MEQ PO (00:54)
[2025-09-02 01:15] VITALS: BP 123/83; PULSE 104; RESP 18; TEMP 36.8; O2SAT 99
== END 2025-09-02 01:16 | disposition home or self-care (01) ==
LOC: SERX 09-02 01:23
PROVIDERS: Emergency Provider Emergency Medicine; PCP Physician Assistant
DX: F41.0 Panic disorder [episodic paroxysmal anxiety] (principal); R06.02 Shortness of breath; R00.0 Tachycardia, unspecified
CPT/HCPCS: 36415; 71045; 80053; 80307; 80320; 81001; 82248; 82803; 83036; 83735; 83880; 84443; 84484; 84703; 85025; 85379; 93005; 96361; 96374; 96375; 99284; J2060; J2405; J7030; A9270; G0480